=== PATIENT | male | born 1965 | race Hispanic/Latino ===

== ENCOUNTER 2019-10-05 17:58 | Emergency (ER) | payer SELFPAY ==
[2019-10-05] MEDS ORDERED: ONDANSETRON 4 MG/2 ML VIAL ONE (18:53)
[2019-10-05] MEDS ORDERED: MORPHINE 4 MG/ML SYR ONE (18:53)
[2019-10-05] MEDS ORDERED: NA CHLORIDE 0.9% 0 ML ONE (18:53)
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
[2019-10-05] MEDS ORDERED: BACI/NEOMYCIN/POLY OINT 15GM TOP ONE (19:18)
[2019-10-05 19:49] VITALS: BP 143/90; TEMP 98.1; O2SAT 99
== END 2019-10-05 19:38 | disposition home or self-care (01) ==
LOC: ER 17:58
DX: T23.271A Burn of second degree of right wrist, initial encounter (principal); X08.8XXA Exposure to other specified smoke, fire and flames, initial encounter; Y93.89 Activity, other specified; Y92.832 Beach as the place of occurrence of the external cause; Z72.0 Tobacco use
CPT/HCPCS: 96374; 96375; 99284; J2405; J7030